=== PATIENT | female | born 1980 | race Caucasian/White ===

== ENCOUNTER 2020-06-07 14:31 | Outpatient (REF) | payer BC, SELFPAY ==
--- NOTE | 2020-06-07 14:41 | XR_ITS ---
EXAMINATION: XR CHEST CLINICAL INFORMATION: Chest pain COMPARISON: None TECHNIQUE: 2 views of the chest were obtained. FINDINGS: No significant abnormality is noted involving the heart, lungs, mediastinum, bony thorax or soft tissues. XR/XR chest 2V IMPRESSION: Unremarkable examination.
== END 2020-06-07 14:32 | disposition home or self-care (01) ==
LOC: HO.XRAY 14:31
PROVIDERS: PCP General Practice; Visit Provider Emergency Medicine
DX: R07.9 Chest pain, unspecified (principal)
CPT/HCPCS: 71046

== ENCOUNTER 2020-09-28 20:30 | Emergency (ER) | payer OTHER, BC, SELFPAY ==
[2020-09-28 20:44] VITALS: BP 116/83; PULSE 111; RESP 16; TEMP 36.6; O2SAT 97; BMI 37.3
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
[2020-09-28 22:00] VITALS: PULSE 92; RESP 16; O2SAT 97
== END 2020-09-28 22:11 | disposition home or self-care (01) ==
PROVIDERS: Emergency Provider Emergency Medicine; PCP General Practice
DX: S13.4XXA Sprain of ligaments of cervical spine, initial encounter (principal); V43.52XA Car driver injured in collision with other type car in traffic accident, initial encounter; M54.6 Pain in thoracic spine; Y93.89 Activity, other specified; Y92.89 Other specified places as the place of occurrence of the external cause; Y99.8 Other external cause status
CPT/HCPCS: 99283; 99284

== ENCOUNTER 2020-09-29 07:51 | Outpatient (REF) | payer OTHER, BC, SELFPAY ==
--- NOTE | ~2020-09-29 | US_ITS ---
EXAMINATION: US THYROID CLINICAL INFORMATION: Thyroid nodules. COMPARISON: None TECHNIQUE: Linear transducer garcia-scale and color Doppler examination with attention to the region of the thyroid. FINDINGS: SIZE: Measurements of the thyroid lobes and nodules are given in sagittal, anteroposterior and transverse dimensions respectively. Right Thyroid Lobe: 4.0 x 2.2 x 1.2 cm, volume 5.4 mL. Parenchyma: The gland echotexture is heterogeneous. Thyroid vascularity is normal. Left Thyroid Lobe: 2.6 x 1.5 x 1.6 cm, volume 3.3 mL. Parenchyma: The gland echotexture is heterogeneous. Thyroid vascularity is normal. Isthmus: 0.6 cm in maximum AP dimension. No focal thyroid nodule is seen. NODES: No lymphadenopathy is seen in the tissue surrounding the thyroid gland. US/US thyroid IMPRESSION: Normal thyroid ultrasound. ACR TI-RADS RECOMMENDATION REFERENCE: Ultrasound-guided fine-needle aspiration, followup ultrasound, no further follow up. * TR1 (0 point) and TR 2 (2 points): No FNA or follow up * TR3 (3 points): FNA if more than or equal to 2.5 cm in maximum dimension, followup ultrasound in 1, 3 and 5 years if 1.5 to 2.4 cm in maximum dimension. * TR4 (4-6 points): FNA if more than or equal to 1.5 cm in maximum dimension, followup ultrasound in 1, 2, 3 and 5 years if 1 to 1.4 cm in maximum dimension. * TR5 (more than or equal to 7 points): FNA if more than or equal to 1 cm in maximum dimension, followup ultrasound every year for 5 years if 0.5 to 0.9 cm in maximum dimension. * TR3, TR4 or TR5 nodules that are below the size threshold for follow up receive no follow up.
== END 2020-09-29 07:52 | disposition home or self-care (01) ==
LOC: HO.US 07:51
PROVIDERS: Visit Provider General Practice
DX: E06.3 Autoimmune thyroiditis (principal)
CPT/HCPCS: 76536

== ENCOUNTER → 2020-10-19 11:49 | Outpatient (BNVA) | payer BC, SELFPAY | PROVIDERS: PCP General Practice; Visit Provider Internal Medicine ==

== ENCOUNTER 2020-10-29 10:46 | Outpatient (REF) | payer BC, SELFPAY ==
[2020-10-29 12:01] LABS: Free T4 (Free Thyroxine) 0.99 ng/dL (0.71-1.85); Thyroid Stimulating Hormone 3.23 uIU/mL (0.32-4.0); Vitamin D 25-OH Total 16.1 ng/mL (>30)
== END 2020-10-29 10:47 | disposition home or self-care (01) ==
LOC: HO.LAB 10:46
PROVIDERS: PCP General Practice; Visit Provider Internal Medicine
DX: E55.9 Vitamin D deficiency, unspecified (principal); E06.3 Autoimmune thyroiditis
CPT/HCPCS: 36415; 82306; 84439; 84443

== ENCOUNTER 2020-12-07 10:15 | Emergency (ER) | payer BC, SELFPAY ==
[2020-12-07 10:47] VITALS: BP 133/76; PULSE 96; RESP 18; TEMP 36.8; O2SAT 98; BMI 40.4
--- NOTE | 2020-12-07 11:38 | ECG_ITS ---
Test Reason : CHEST TIGHTNESS Blood Pressure : / mmHG Vent. Rate : 084 BPM Atrial Rate : 084 BPM P-R Int : 158 ms QRS Dur : 080 ms QT Int : 368 ms P-R-T Axes : 041 026 023 degrees QTc Int : 434 ms Normal sinus rhythm Normal ECG No previous ECGs available Referred By: Sirena Souza Electronically Signed By:TERE BORDEN MD
--- NOTE | 2020-12-07 11:43 | ED.ANXIETY ---
HPI - Anxiety General Chief Complaint: Anxiety Stated Complaint: SOB Time Seen by Provider: 12/07/20 11:38 Related Data Home Medications Medication Instructions Recorded Confirmed cyanocobalamin (vitamin B-12) 1,000 mcg IM Q4W ml 10/19/20 10/19/20 1,000 mcg/mL injection solution ergocalciferol (vitamin D2) 1,250 1,250 mcg PO QWEEK 10/19/20 10/19/20 mcg (50,000 unit) capsule levothyroxine 100 mcg capsule 100 mcg PO DAILY 10/19/20 10/19/20 Previous Rx's Medication Instructions Recorded cyclobenzaprine 10 mg PO TID PRN #10 tab 09/28/20 ibuprofen 800 mg PO Q8H PRN #15 tab 09/28/20 lorazepam [Ativan] 0.5 mg PO DAILY PRN #5 tab 12/07/20 Allergies Allergy/AdvReac Type Severity Reaction Status Date / Time cinnamon Allergy Angioedema Verified 12/07/20 10:54 seafood Allergy Abdominal Verified 12/07/20 10:54 Pain Review of Systems Review of Systems: Constitutional : No Weight loss, No Fever, No Chills, No Night Sweats, No Fatigue, No Malaise ENT/Mouth : No Hearing loss, No Ear Pain, No Nasal Congestion, No Sinus Pain, No Hoarseness, No sore throat, No Rhinorrhea, No Swallowing Difficulty Eyes: No Eye Pain, No Swelling, No Redness, No Foreign Body, No Discharge, No Vision Changes Cardiovascular : Chest tightness at time of the episode No SOB, No Dyspnea on Exertion, No Orthopnea, No Edema, No Palpitations Respiratory : No Cough, No Sputum, No Wheezing, No Smoke Exposure, No Dyspnea Gastrointestinal : No Nausea, No Vomiting, No Diarrhea, No Constipation, No abdominal Pain, No Hematochezia, No Melena Genitourinary : no irregular bleeding, No Dysuria, No Urinary Frequency, No Hematuria, No Urinary Incontinence, No Urgency, No Flank Pain, No Urinary Flow Changes, No Hesitancy Musculoskeletal : No joint pain, No Myalgias, No Joint Swelling Skin : No Skin Lesions, No rash Neuro : No Weakness, No Numbness, No Paresthesias, No Loss of Consciousness, No Dizziness, No Headache Psych : Anxiety/Panic 2 hours before arrival, No Depression, No SI/HI/AH/VH, No Social Issues, Heme/Lymph: No Bruising, No Bleeding,No Lymphadenopathy Endocrine : No Polyuria, No Polydipsia, No Temperature Intolerance Yes all other systems are reviewed and are negative [facility] Past Medical History Medical History (Updated 12/07/20 @ 12:40 by Sirena Souza [facility]) Yasmeen's disease Hypothyroid Vitamin D deficiency Surgical History Hx of section Family History Family History (Updated 10/19/20 @ 12:00 by ANGELIC Armendariz) Mother Rheumatoid arthritis Sleep apnea Thyroid disease Father Thyroid disease Diabetes Heart disease Social History Social History (Updated 10/19/20 @ 11:51 by ANGELIC Armendariz) Patient Tobacco Use Status: Never used Tobacco Advance Directives: No Advance Directives Information Provided: No Patient : No Physical Exam Vital Signs: Vital Signs: Last Vital Signs Temp 98.3 F 12/07/20 10:47 Pulse 96 12/07/20 10:47 Resp 18 12/07/20 10:47 BP 133/76 12/07/20 10:47 Pulse Ox 98 12/07/20 10:47 Body Mass Index 40.4 Const: General: healthy appearing, no acute distress and well developed Nutritional Appearance: well nourished Orientation/consciousness: patient oriented x3 Neck: Neck: Yes normal visual inspection, Yes full ROM and Yes trachea midline Thyroid: Thyroid normal Resp: Auscultation: clear to auscultation bilaterally Cardio: Rate: regular rate Rhythm: regular rhythm GI: Inspection: Yes normal to inspection and No distended Palpation (GI): No hepatosplenomegaly present Auscultation: normal bowel sounds Skin: General skin exam: elasticity normal, turgor normal and dry skin Neuro: General: patient oriented x3 Course Course Course Narrative: 41-year-old female with a 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 Last TSH 3.23, free T4 0.99 on October 29. patient reports that she was getting ready for work this morning and started feeling anxious with heart palpitations choking like feeling, SOB, chest tightness. By the time patient came to emergency department her symptoms went away. Right now patient is feeling fine. Denies any CP, SOB with or without exertion, presyncope, syncope. Patient reports that she does have history of anxiety and has been waiting to see a therapist. Patient denies any factors that could contribute to it at this time. Denies any SI or HI. No stress. Patient reports that she works from home. First COVID vaccine last Saturday. Denies fevers or chills Reevaluation(s) Reevaluation #1: patient denies any and anxiety at this moment. She has calm, family member at the bedside. EKG done and normal sinus with heart rate 84. I will send her home with script for Ativan, however she will call her PCP and set up an appointment with her therapist sooner. Patient is agreeable to plan of care verbalizes understanding of instructions. She was given the opportunity to questions MDM - Anxiety ECG Data ECG interpretation date: 12/07/20 Interpretation: normal EKG. Sinus rhythm, heart rate 84 and regular, P are 0.1 6, QRS 0.8, QTC 434 ms with normal R-wave progression Discharge Plan Discharge Clinical Impression: Acute anxiety Patient Disposition: Home, Self-Care Instructions: Anxiety (ED) Additional Instructions: you were seen here today after an anxiety attack at home. Your EKG was normal. Please follow-up with your primary care provider. You are given a script for anti anxiety medication please. Please do not drive any vehicle when taking this medication. You may return to emergency department if you will experience any additional symptoms. Prescriptions: New lorazepam [Ativan] 0.5 mg tablet 0.5 mg PO DAILY PRN (Reason: anxiety) Qty: 5 RF: 0 No Action cyclobenzaprine 10 mg tablet 10 mg PO TID PRN (Reason: muscle spasm) Qty: 10 RF: 0 ibuprofen 800 mg tablet 800 mg PO Q8H PRN (Reason: pain) Qty: 15 RF: 0 levothyroxine 100 mcg capsule 100 mcg PO DAILY RF: 0 cyanocobalamin (vitamin B-12) 1,000 mcg/mL solution 1,000 mcg IM Q4W RF: 0 ergocalciferol (vitamin D2) 1,250 mcg (50,000 unit) capsule 1,250 mcg PO QWEEK RF: 0 Stand Alone Forms: Work/School Release Interventions: ED Discharge Assessment Last Done: 12/07/20 12:50 Discharge Date/Time: 12/07/20 12:51
== END 2020-12-07 12:51 | disposition home or self-care (01) ==
PROVIDERS: Emergency Provider Emergency Medicine; PCP General Practice
DX: F41.9 Anxiety disorder, unspecified (principal); E06.3 Autoimmune thyroiditis; Z79.899 Other long term (current) drug therapy
CPT/HCPCS: 93005; 99283

== ENCOUNTER 2020-12-11 23:30 | Emergency (ER) | payer BC, SELFPAY ==
--- NOTE | ~2020-12-11 | CT_ITS ---
EXAMINATION: CT ABDOMEN AND PELVIS WITHOUT CONTRAST CLINICAL INFORMATION: Right flank pain and blood in urine COMPARISON: None TECHNIQUE: Multidetector volumetric imaging was performed from the superior aspect of the liver through the pubic symphysis. Sagittal and coronal reformatted images were obtained on the technologist's workstation. This CT examination was performed using dose optimization techniques as appropriate, variously including the following: *Automated exposure control *Adjustment of mA and/or kV according to patient size (this includes techniques or standardized protocols for targeted exams where dose is matched to indication/reason for exam; i.e. extremities or head) *Use of iterative reconstruction technique DLP: 798 mGy-cm FINDINGS: LUNG BASES: The visualized lung bases are unremarkable. LIVER, GALLBLADDER, AND BILIARY TREE: The liver is enlarged, measuring approximately 23.5 cm in length. No focal hepatic lesion or biliary ductal dilatation is identified. The gallbladder is unremarkable with no evidence of radiopaque gallstones, gallbladder wall thickening, or obvious pericholecystic inflammatory changes. PANCREAS: Unremarkable. SPLEEN: Unremarkable. ADRENAL GLANDS: Unremarkable. KIDNEYS AND URETERS: There is a right ureterovesicular junction calculus measuring 8 mm with moderate hydroureteronephrosis. No left-sided hydronephrosis. Punctate left upper pole renal calculus noted. BLADDER: Mildly distended. GASTROINTESTINAL TRACT: There is suggestion of a small hiatal hernia. The small and large bowel are unremarkable. The appendix is unremarkable. No free fluid or free air is seen. ABDOMINAL WALL: No significant hernia is appreciated. LYMPH NODES: Normal. VASCULAR: Unremarkable. PELVIC VISCERA: Unremarkable. OSSEOUS STRUCTURES: Unremarkable. CT/CT abdomen pelvis wo con IMPRESSION: 1. Right ureterovesicular junction calculus measuring 8 mm with moderate hydroureteronephrosis. 2. Punctate left renal calculus without hydronephrosis. 3. Hepatomegaly.
[2020-12-11 23:54] VITALS: BP 138/81; PULSE 95; RESP 18; TEMP 36.4; O2SAT 99; BMI 40.4
[2020-12-12 00:25] LABS: Appearance Urine HAZY; Color Urine YELLOW; Glucose Urine UA NEG (NEG); Leukocyte Esterase Urine NEG (NEG); Nitrite Urine NEG (NEG); Specific Gravity - Urine >= 1.030 (1.005-1.025); Urine Blood 2+ (NEG); Urine Ketones NEG (NEG); Urine Protein TRACE MG/DL (NEG-TRACE)
[2020-12-12 00:27] LABS: UPreg QC Valid YES; Urine Pregnancy NEGATIVE (NEGATIVE)
[2020-12-12 00:32] LABS: Bacteria Urine 1+ /LPF; Mucus Urine 1+ /LPF; RBC Urine 30-49 /HPF (0); Squamous Epithelial Cell Urine 1+ /LPF
--- NOTE | 2020-12-12 00:36 | PC.NURSE ---
at bedside for primary eval.
--- NOTE | 2020-12-12 00:42 | ED.GENADULT ---
HPI - General Adult General Chief complaint: Back Pain/Injury Stated complaint: flank pain/right leg pain Time Seen by Provider: 12/12/20 00:40 Source: patient and family (Mother) Mode of arrival: ambulatory Limitations: no limitations History of Present Illness HPI narrative: 40-year-old female came in for evaluation of right flank pain. Pain started 4 hours ago, patient was sitting on the toilet seat for bowel movement when the pain started suddenly,, pain is localized to the right flank area, pain was associated with nausea no vomiting, no fever, no chills, no history of similar pain, no history of kidney stone, no relieving factor, no aggravating factors. No back injury. Related Data Home Medications Medication Instructions Recorded Confirmed cyanocobalamin (vitamin B-12) 1,000 mcg IM Q4W ml 10/19/20 10/19/20 1,000 mcg/mL injection solution ergocalciferol (vitamin D2) 1,250 1,250 mcg PO QWEEK 10/19/20 10/19/20 mcg (50,000 unit) capsule levothyroxine 100 mcg capsule 100 mcg PO DAILY 10/19/20 10/19/20 Previous Rx's Medication Instructions Recorded cyclobenzaprine 10 mg PO TID PRN #10 tab 09/28/20 ibuprofen 800 mg PO Q8H PRN #15 tab 09/28/20 lorazepam [Ativan] 0.5 mg PO DAILY PRN #5 tab 12/07/20 ondansetron HCl [Zofran] 4 mg PO Q8H PRN #10 tab 12/12/20 oxycodone 5 mg PO Q8H PRN #14 tab 12/12/20 Allergies Allergy/AdvReac Type Severity Reaction Status Date / Time cinnamon Allergy Angioedema Verified 12/07/20 10:54 seafood Allergy Abdominal Verified 12/07/20 10:54 Pain Review of Systems Review of Systems: All other systems are reviewed and are negative Constitutional: Reports as per HPI and Reports no additional constitutional complaints Eyes: Reports as per HPI and Reports no additional eye complaints Reports system reviewed and no additional complaints, except as documented Cardiovascular: Reports as per HPI and Reports no additional cardiovascular complaints Respiratory: Reports as per HPI and Reports no additional respiratory complaints Gastrointestinal: Reports as per HPI and Reports no additional gastrointestinal complaints Genitourinary: Reports no additional female genitourinary complaints Musculoskeletal: Reports no additional musculoskeletal complaints Skin/Breast: Reports system reviewed and no additional complaints, except as docu Psychiatric: Reports no additional psychiatric complaints Endocrine: Reports no additional endocrine complaints Hematologic/Lymphatic: Reports no additional hematologic/lymphatic complaints Allergic/Immunologic: Reports no additional allergic/immunologic complaints Reports system reviewed and no additional complaints, except as documented and Reports Abnormal speech present [facility] Past Medical History Medical History Yasmeen's disease Hypothyroid No known health problems Vitamin D deficiency Surgical History Hx of section Family History Family History Mother Rheumatoid arthritis Sleep apnea Thyroid disease Father Thyroid disease Diabetes Heart disease Social History Social History Patient Tobacco Use Status: Never used Tobacco Advance Directives: No Patient : No Physical Exam Vital Signs: Vital Signs: Last Vital Signs Temp 97.6 F 12/11/20 23:54 Pulse 95 12/11/20 23:54 Resp 18 12/11/20 23:54 BP 138/81 12/11/20 23:54 Pulse Ox 99 12/11/20 23:54 Body Mass Index 40.4 Vital signs have been reviewed as appeared to be correct. Blood pressure normal. Heart rate normal. Respiration rate normal. Temperature normal. Oxygen saturation normal. Appearance: Alert. Oriented X3. No acute distress. Head: Normal external exam. Normocephalic. Atraumatic. No Nieto signs noted. No raccoon eyes noted Eyes: PERRLA. EOMI. Conjunctiva and sclera normal. Eyelids normal. ENT: TM's Normal. Pharynx normal. Uvula midline. Moist mucous membranes. No trismus noted. No drooling noted. No muffled voice noted. Neck: Normal inspection. Neck supple. FROM. No adenopathy. Thyroid Normal. No meningeal signs. No neck mass noted. CVS: Normal heart rate and rhythm. Heart sound normal. No murmurs noted. Pulses normal throughout. Respiratory: No respiratory distress. Painless inspiration. Breath sounds normal. No wheezes/rales/rhonchi noted. Chest nontender. No accessory muscle usage noted or decreased air movement noted. Abdomen: Soft and nontender. Bowel sounds normal in all 4 quadrants. No distention noted. No organomegaly noted. No visible injury noted. Back: Right CVA tenderness. Full range of motion noted. Skin: Skin warm and dry. Normal skin color. Normal skin turgor. No rashes/lesions/lacerations noted. Extremities: No lower extremity edema. Extremities exhibit normal range of motion. Extremities nontender. Neuro: Oriented X 3. No motor deficit. No sensory deficit. Reflexes normal. Course Course Course Narrative: Assessment and plan. 40-year-old female came in with right flank pain secondary to 8 mm stone that is now at right UVJ, patient received 2 doses of morphine and Zofran in the emergency department explained to the patient that the size of the stone may be too big for spontaneous passing, but patient would like to take prescription for pain medication and go home tonight and will return if needed. Flank pain now is better is 3/10. Medical Decision Making Lab Data Lab results reviewed: Yes I reviewed the patient's lab results. Result diagrams: 12/12/20 00:50 12/12/20 00:50 Labs: Lab Results 12/12/20 12/12/20 12/12/20 Range/Units 00:17 00:17 00:50 WBC 10.3 (4.8-10.8) X10*3/uL RBC 4.15 L (4.20-5.50) X10*6/uL Hgb 10.7 L (12.0-16.0) g/dl Hct 33.6 L (37-47) % MCV 81.0 (80-98) fL MCH 25.8 L (27.0-33.0) pg MCHC 31.8 (31.0-35.0) g/dl RDW 15.3 (11.0-16.0) % Plt Count 401 H (160-400) X10*3/uL MPV 9.2 L (9.4-12.3) fL Immature Gran % (Auto) 0.4 (0.0-0.4) % Neut % (Auto) 75.6 H (45-73) % Lymph % (Auto) 14.7 L (20-40) % [place] % (Auto) 6.5 (2-11) % Eos % (Auto) 2.6 (0-4) % Baso % (Auto) 0.2 (0-2) % Lymph # (Auto) 1.5 (1.2-4.9) X10*3/uL [place] # (Auto) 0.7 (0.1-1.2) X10*3/uL Eos # (Auto) 0.3 (0.0-0.4) X10*3/uL Baso # (Auto) 0.0 (0.0-0.2) X10*3/uL Abs Immat Gran (auto) 0.04 H (0.00-0.03) X10*3/uL Absolute Neuts (auto) 7.8 (2.0-8.3) X10*3/uL Absolute Nucleated RBC 0.000 (0.0-0.012) X10*3/uL Nucleated RBC % (auto) 0.0 (0.0-0.2) /100WBC Sodium (135-145) mmol/L Potassium (3.3-5.1) mmol/L Chloride (96-108) mmol/L Carbon Dioxide (22-29) mmol/L Anion Gap (12-20) BUN (9-16) mg/dL Creatinine (0.5-1.4) mg/dL Estim Creat Clear Calc Estimated GFR Random Glucose (60-115) mg/dL Calcium (8.4-10.2) mg/dL Total Bilirubin (0.0-1.0) mg/dL Direct Bilirubin (0.0-0.5) mg/dL AST (5-31) U/L ALT (0-31) U/L Alkaline Phosphatase (39-117) U/L Total Protein (6.5-8.0) g/dL Albumin (3.5-5.0) g/dL Lipase (8-78) U/L Urine Color YELLOW Urine Appearance HAZY Urine pH 6.0 (5.0-8.0) Ur Specific Woody >= 1.030 H (1.005-1.025) Urine Protein TRACE (NEG-TRACE) MG/DL Urine Glucose (UA) NEG (NEG) MG/DL Urine Ketones NEG (NEG) MG/DL Urine Blood 2+ H (NEG) Urine Nitrite NEG (NEG) Ur Leukocyte Esterase NEG (NEG) Urine RBC 30-49 H (0) /HPF Urine WBC 1-4 (0-4) /HPF Ur Squamous Epith Cells 1+ /LPF Urine Bacteria 1+ /LPF Urine Mucus 1+ /LPF Urine Test NEGATIVE (NEGATIVE) 12/12/20 Range/Units 00:50 WBC (4.8-10.8) X10*3/uL RBC (4.20-5.50) X10*6/uL Hgb (12.0-16.0) g/dl Hct (37-47) % MCV (80-98) fL MCH (27.0-33.0) pg MCHC (31.0-35.0) g/dl RDW (11.0-16.0) % Plt Count (160-400) X10*3/uL MPV (9.4-12.3) fL Immature Gran % (Auto) (0.0-0.4) % Neut % (Auto) (45-73) % Lymph % (Auto) (20-40) % [place] % (Auto) (2-11) % Eos % (Auto) (0-4) % Baso % (Auto) (0-2) % Lymph # (Auto) (1.2-4.9) X10*3/uL [place] # (Auto) (0.1-1.2) X10*3/uL Eos # (Auto) (0.0-0.4) X10*3/uL Baso # (Auto) (0.0-0.2) X10*3/uL Abs Immat Gran (auto) (0.00-0.03) X10*3/uL Absolute Neuts (auto) (2.0-8.3) X10*3/uL Absolute Nucleated RBC (0.0-0.012) X10*3/uL Nucleated RBC % (auto) (0.0-0.2) /100WBC Sodium 137 (135-145) mmol/L Potassium 3.9 (3.3-5.1) mmol/L Chloride 109 H (96-108) mmol/L Carbon Dioxide 18 L (22-29) mmol/L Anion Gap 14 (12-20) BUN 14 (9-16) mg/dL Creatinine 0.80 (0.5-1.4) mg/dL Estim Creat Clear Calc 89.9 Estimated GFR > 60 Random Glucose 120 H (60-115) mg/dL Calcium 8.4 (8.4-10.2) mg/dL Total Bilirubin 0.2 (0.0-1.0) mg/dL Direct Bilirubin < 0.2 (0.0-0.5) mg/dL AST 18 (5-31) U/L ALT 12 (0-31) U/L Alkaline Phosphatase 88 (39-117) U/L Total Protein 6.8 (6.5-8.0) g/dL Albumin 3.6 (3.5-5.0) g/dL Lipase 24 (8-78) U/L Urine Color Urine Appearance Urine pH (5.0-8.0) Ur Specific Woody (1.005-1.025) Urine Protein (NEG-TRACE) MG/DL Urine Glucose (UA) (NEG) MG/DL Urine Ketones (NEG) MG/DL Urine Blood (NEG) Urine Nitrite (NEG) Ur Leukocyte Esterase (NEG) Urine RBC (0) /HPF Urine WBC (0-4) /HPF Ur Squamous Epith Cells /LPF Urine Bacteria /LPF Urine Mucus /LPF Urine Test (NEGATIVE) Imaging Data CT scan - abdomen: Radiologist's impression: . Right ureterovesicular junction calculus measuring 8 mm with moderate hydroureteronephrosis. 2. Punctate left renal calculus without hydronephrosis. 3. Hepatomegaly. Discharge Plan Discharge Clinical Impression: Renal colic, Ureterolithiasis Patient Disposition: Home, Self-Care Instructions: Kidney Stones (ED) Prescriptions: New ondansetron HCl [Zofran] 4 mg tablet 4 mg PO Q8H PRN (Reason: nausea and vomiting) Qty: 10 RF: 0 oxycodone 5 mg tablet 5 mg PO Q8H PRN (Reason: pain) Qty: 14 RF: 0 No Action cyclobenzaprine 10 mg tablet 10 mg PO TID PRN (Reason: muscle spasm) Qty: 10 RF: 0 ibuprofen 800 mg tablet 800 mg PO Q8H PRN (Reason: pain) Qty: 15 RF: 0 lorazepam [Ativan] 0.5 mg tablet 0.5 mg PO DAILY PRN (Reason: anxiety) Qty: 5 RF: 0 levothyroxine 100 mcg capsule 100 mcg PO DAILY RF: 0 cyanocobalamin (vitamin B-12) 1,000 mcg/mL solution 1,000 mcg IM Q4W RF: 0 ergocalciferol (vitamin D2) 1,250 mcg (50,000 unit) capsule 1,250 mcg PO QWEEK RF: 0 Referrals: Bal Ventura MD [Physician] - 2 days Stand Alone Forms: Work/School Release
[2020-12-12] MEDS: 0.9 % Sodium Chloride 1,000 ML 999 ML IVCONT ×2 (00:49→02:10)
[2020-12-12 00:55] LABS: Basophils Percent Auto 0.2 % (0-2); Eosinophils Absolute Auto 0.3 X10*3/uL (0.0-0.4); Eosinophils Percent Auto 2.6 % (0-4); Hematocrit 33.6 % (37-47); Hemoglobin 10.7 g/dl (12.0-16.0); Imm Gran Abs Auto 0.04 X10*3/uL (0.00-0.03); Imm Gran Pct Auto 0.4 % (0.0-0.4); Lymphocytes Absolute Auto 1.5 X10*3/uL (1.2-4.9); Lymphocytes Percent Auto 14.7 % (20-40); MANUAL DIFF FLAG NO; Mean Corpuscular HGB Conc 31.8 g/dl (31.0-35.0); Mean Corpuscular Hemoglobin 25.8 pg (27.0-33.0); Mean Platelet Volume 9.2 fL (9.4-12.3); Monocytes Absolute Auto 0.7 X10*3/uL (0.1-1.2); Monocytes Percent Auto 6.5 % (2-11); Neutrophils Absolute Auto 7.8 X10*3/uL (2.0-8.3); Neutrophils Percent Auto 75.6 % (45-73); Platelet Count 401 X10*3/uL (160-400); Red Blood Count 4.15 X10*6/uL (4.20-5.50); Red Cell Distribution Width 15.3 % (11.0-16.0); White Blood Count 10.3 X10*3/uL (4.8-10.8)
[2020-12-12] MEDS: Morphine Sulfate 2 MG/ML CARTRIDGE 1 MG IVPUSH ×2 (00:55→01:49)
[2020-12-12 01:17] LABS: Alanine Aminotransferase 12 U/L (0-31); Albumin Level 3.6 g/dL (3.5-5.0); Alkaline Phosphatase 88 U/L (39-117); Anion Gap 14 (12-20); Aspartate Amino Transferase 18 U/L (5-31); Bilirubin Direct < 0.2 mg/dL (0.0-0.5); Bilirubin Total 0.2 mg/dL (0.0-1.0); Blood Urea Nitrogen 14 mg/dL (9-16); Calcium 8.4 mg/dL (8.4-10.2); Carbon Dioxide 18 mmol/L (22-29); Chloride 109 mmol/L (96-108); Creatinine Clr Calc Pharmacy 89.9; Estimated Glomerular Filt Rate > 60; Glucose Random 120 mg/dL (60-115); Lipase 24 U/L (8-78); Potassium 3.9 mmol/L (3.3-5.1); Sodium 137 mmol/L (135-145); Total Protein 6.8 g/dL (6.5-8.0)
--- NOTE | 2020-12-12 01:48 | PC.NURSE ---
at bedside. Pt medicated per JUL.
[2020-12-12 01:52] VITALS: BP 117/71; PULSE 93; RESP 16
[2020-12-12] MEDS: Ketorolac Tromethamine 15 MG/ML VIAL 30 MG IVPUSH (02:09)
--- NOTE | 2020-12-12 02:51 | PC.NURSE ---
Pt vomiting multiple times in bed. Pt reports relief of nausea after vomiting. Pt reports some relief of pain after Toradol.
[2020-12-12] MEDS: Prochlorperazine Edisylate 10 MG/2 ML VIAL IVPUSH (03:26)
[2020-12-12] MEDS: HYDROmorphone HCl 1 MG/ML SYRINGE IVPUSH (03:26)
[2020-12-12 03:32] VITALS: BP 112/57; PULSE 82; RESP 20; O2SAT 99
[2020-12-12 06:10] VITALS: BP 109/63; PULSE 89; RESP 16; O2SAT 100
== END 2020-12-12 06:22 | disposition home or self-care (01) ==
PROVIDERS: Emergency Provider Emergency Medicine; PCP General Practice
DX: N13.2 Hydronephrosis with renal and ureteral calculous obstruction (principal); N20.0 Calculus of kidney
CPT/HCPCS: 36415; 74176; 80048; 80076; 81001; 81025; 83690; 85025; 96361; 96374; 96375; 96376; 99284; J1170; J1885; J2270; J2405

== ENCOUNTER → 2020-12-14 12:35 | Outpatient (BNVA) | payer BC, SELFPAY | PROVIDERS: PCP General Practice; Visit Provider Urology ==

== ENCOUNTER → 2020-12-15 14:26 | Outpatient (BNVA) | payer BC, SELFPAY | PROVIDERS: PCP General Practice; Visit Provider Surgery Vascular Surgery ==

== ENCOUNTER 2020-12-21 15:07 | Outpatient (REF) | payer BC, SELFPAY ==
--- NOTE | ~2020-12-21 | US_ITS ---
EXAMINATION: US RETROPERITONEAL LIMITED (RENAL ONLY) CLINICAL INFORMATION: Calculus of kidney. COMPARISON: CT abdomen pelvis 12/12/2020. TECHNIQUE: Real-time imaging of the kidneys. FINDINGS: RIGHT KIDNEY: 11.6 x 4.4 x 5.8 cm (SAG x AP x TRV). The kidney is normal in size, contour, and echogenicity. Renal cortical thickness is normal. No calculi or focal parenchymal lesions. No hydronephrosis. The previously identified right hydronephrosis on 12/12/2020 CT scan is no longer seen. LEFT KIDNEY: 12.0 x 4.4 x 6.3 cm (SAG x AP x TRV). The kidney is normal in size, contour, and echogenicity. Renal cortical thickness is normal. No calculi or focal parenchymal lesions. No hydronephrosis. There is a 0.6 x 0.4 x 1 cm echogenic density suggestive of a stone in the right UVJ region. This is similar to CT scan 12/12/2020 exam. US/US renal BI IMPRESSION: No renal stone or hydronephrosis. Stone in the bladder in the right UVJ region similar to 12/12/2020 CT scan.
== END 2020-12-21 15:08 | disposition home or self-care (01) ==
LOC: HO.HMGCX 15:07
PROVIDERS: Visit Provider Urology
DX: N20.0 Calculus of kidney (principal)
CPT/HCPCS: 76775

== ENCOUNTER → 2020-12-28 11:58 | Outpatient (BNVA) | payer BC, SELFPAY | PROVIDERS: PCP General Practice; Visit Provider Urology ==

== ENCOUNTER → 2021-01-04 11:29 | Outpatient (BNVA) | payer BC, SELFPAY | PROVIDERS: PCP General Practice; Visit Provider Internal Medicine ==

== ENCOUNTER 2021-01-06 07:41 | Outpatient (REF) | payer BC, SELFPAY ==
[2021-01-06 09:06] LABS: Free T4 (Free Thyroxine) 1.06 ng/dL (0.71-1.85); Thyroid Stimulating Hormone 8.82 uIU/mL (0.32-4.0); Vitamin D 25-OH Total 18.3 ng/mL (>30)
== END 2021-01-06 07:42 | disposition home or self-care (01) ==
LOC: HO.LAB 07:41
PROVIDERS: PCP General Practice; Visit Provider Internal Medicine
DX: E06.3 Autoimmune thyroiditis (principal); E55.9 Vitamin D deficiency, unspecified
CPT/HCPCS: 36415; 82306; 84439; 84443

== ENCOUNTER 2021-01-09 10:47 | Day surgery (SDC) | payer BC, SELFPAY ==
--- NOTE | 2021-01-06 11:50 | HO.ANESPROP2 ---
Documented by User: Ai Forbes NP 01/06/21 11:51 HPI - Anesthesia Eval Consult details Narrative: 40yo F for Right Cystoscopy, Ureteroroscopy, Retro, Laser, Poss Stent Placement PMFSH Active Problems Active Problems: All Active Problems (Updated 12/15/20 @ 14:54 by Truman Herring MD) Varicose veins of right lower extremity with inflammation (Acute) Nephrolithiasis (Acute) Vitamin D deficiency (Acute) Yasmeen's disease (Acute) Past Medical History Medical History Yasmeen's disease Hypothyroid No known health problems Vitamin D deficiency Family History Family History Mother Rheumatoid arthritis Sleep apnea Thyroid disease Father Thyroid disease Diabetes Heart disease Surgical History Surgical History (Updated 01/09/21 @ 11:49 by Michaela Schultz RN) Hx of section Tubal ligation status Social History Social History Patient Tobacco Use Status: Never used Tobacco Use of substances other than those prescribed or required for medical reasons: No Are you DNR?: No Advance Directives: No Advance Directives Information Provided: Yes Recently lost weight without trying: No Nutrition Risks: No Nutritional Risk Patient : No Poor oral hygiene: Yes Meds Allergies Allergy/AdvReac Type Severity Reaction Status Date / Time cinnamon Allergy Angioedema Verified 01/04/21 11:36 seafood Allergy Abdominal Verified 01/04/21 11:36 Pain Home Medications Medication Instructions Recorded Confirmed Last Taken Type cyanocobalamin (vitamin B-12) 1,000 mcg IM Q4W ml 10/19/20 10/19/20 Unknown History 1,000 mcg/mL injection solution ergocalciferol (vitamin D2) 1,250 1,250 mcg PO QWEEK 10/19/20 10/19/20 Unknown History mcg (50,000 unit) capsule Exam Exam Date and Time: January 06, 2021 1150 Pertinent Lab Results Pertinent Lab Results: Laboratory Tests 12/12/20 12/12/20 00:50 00:50 WBC 10.3 Hgb 10.7 L Hct 33.6 L Plt Count 401 H Sodium 137 Potassium 3.9 Chloride 109 H Carbon Dioxide 18 L BUN 14 Creatinine 0.80 Narrative Narrative: EKG 11/2020 Vent. Rate : 084 BPM ? ? Atrial Rate : 084 BPM ?? P-R Int : 158 ms? QRS Dur : 080 ms ? ? QT Int : 368 ms ? ? ? P-R-T Axes : 041 026 023 degrees ?? QTc Int : 434 ms ? Normal sinus rhythm Normal ECG No previous ECGs available Assessment and Plan Assessment Anesthesia Assessment: Chart Reviewed Documented by User: Kelly Jacobson MD 01/09/21 15:31 PMFSH Active Problems Active Problems: All Active Problems (Updated 12/15/20 @ 14:54 by Truman Herring MD) Varicose veins of right lower extremity with inflammation (Acute) Nephrolithiasis (Acute) Vitamin D deficiency (Acute) Yasmeen's disease (Acute) Bilateral LE edema. Being w/u by cardiac and vascular. Appointments pending. No pain. No redness. No SOB. No swelling anywhere else Past Medical History Medical History Yasmeen's disease Hypothyroid No known health problems Vitamin D deficiency Family History Family History Mother Rheumatoid arthritis Sleep apnea Thyroid disease Father Thyroid disease Diabetes Heart disease Family history of problems with anesthesia: No Surgical History Surgical History (Updated 01/09/21 @ 11:49 by Michaela Schultz RN) Hx of section Tubal ligation status History of Problems with Anesthesia: No Social History Social History Patient Tobacco Use Status: Never used Tobacco Use of substances other than those prescribed or required for medical reasons: No Are you DNR?: No Advance Directives: No Advance Directives Information Provided: Yes Recently lost weight without trying: No Nutrition Risks: No Nutritional Risk Patient : No Poor oral hygiene: Yes Meds Allergies Allergy/AdvReac Type Severity Reaction Status Date / Time cinnamon Allergy Angioedema Verified 01/04/21 11:36 seafood Allergy Abdominal Verified 01/04/21 11:36 Pain Home Medications Medication Instructions Recorded Confirmed Last Taken Type cyanocobalamin (vitamin B-12) 1,000 mcg IM Q4W ml 10/19/20 10/19/20 Unknown History 1,000 mcg/mL injection solution ergocalciferol (vitamin D2) 1,250 1,250 mcg PO QWEEK 10/19/20 10/19/20 Unknown History mcg (50,000 unit) capsule Exam Height,Weight and Vital Signs: Height 4 ft 11 in Weight 90.718 kg Vital Signs Temp Pulse Resp BP Pulse Ox 98.7 F 93 16 110/81 96 01/09/21 12:10 01/09/21 12:10 01/09/21 12:10 01/09/21 12:10 01/09/21 12:10 Airway Mallampati Class: II TM Dist: >3cm Neck ROM: Full Loose/Missing/Broken Teeth: Yes (2 very loose teeth bottom front. Aware that may fall out with placement of LMA. Does not mind if they do) Heart: RRR Lungs: CTAB Assessment and Plan Assessment Anesthesia Assessment: Anesthesia Plan Discussed Final Anesthetic Review Family History of Problems with Anesthesia: No History of Problems with Anesthesia: No NPO: Yes ASA Class: III Final Preanesthetic Review: No Changes in Pt Med Stat, Meds/Allgs Chart Reviewed, Consent Obtained/Reviewed and Anes Risks/Benef Reviewed Patient Risk: Intermediate Procedure Risk: Low Assessment/Block/Sedation in SS: Assess/Block/Sedation-SS Anesthetic Plan Anesthetic Plan: GA and MAC: Disposition: Standard PACU
[2021-01-09] VITALS (7 sets, daily range): BP systolic 102–115; BP diastolic 66–81; PULSE 92–115; RESP 14–16; TEMP 36.4–37.1; O2SAT 93–96; BMI 40.4
--- NOTE | ~2021-01-09 | FL_ITS ---
EXAMINATION: XR FLUOROSCOPY WITH IMAGES CLINICAL INFORMATION: Cystoscopy ureteroscopy, retrograde exam and laser treatment. COMPARISON: Previous renal ultrasound December [address] of the abdomen and pelvis November 2020 TECHNIQUE: Fluoroscopy performed by Dr. Bal Ventura. Fluoroscopy time: 0.3 minutes DAP: 8.4 mGycm2 Images: 1 FINDINGS: Single image demonstrates the distal end of a right internal ureteral stent. FL/FL guidance in OR IMPRESSION: Fluoroscopy guidance for retrograde exam.
[2021-01-09] MEDS: Lactated Ringers 1,000 ML 100 ML IVCONT (12:25)
[2021-01-09] MEDS: levoFLOXacin 500 MG TABLET PO (12:30)
--- NOTE | 2021-01-09 14:21 | MHC.SHP ---
Pre-Procedural Eval Section A Date of Service: 01/09/21 Section B Chief Complaint: Calculus of Kidney Details of Present Illness: Distal right ureteric stone has not passed with medical expulsion therapy Relevant Social History: None Present Medications: see Short Stay Collaborative assessment Medical History: No relevant PMH History of Previous Operations: No relevant previous surgery Allergies: Allergies Allergy/AdvReac Type Severity Reaction Status Date / Time cinnamon Allergy Angioedema Verified 01/04/21 11:36 seafood Allergy Abdominal Verified 01/04/21 11:36 Pain Review of Systems Sugical H&P ROS: Negative: Constitution, Cardiovascular, Respiratory, Neurological, Psychiatric, Hem-Onc, Allergic/Immunologic, Gastrointestinal, Genitourinary, Musculoskeletal, Integumentary, Endocrine and Eyes/Ears/Nose/Throat Exam Surgical H&P Exam: Normal: HEENT, Normal: Heart, Normal: Lungs, Normal: Extremities, Normal: Abdomen, Normal: Skin and Normal: Neurological Plan Diagnosis/Plan: Unchanged (Distal right ureteric stone extraction with ureteroscopy laser lithotripsy and stent placement) I have reviewed the history and physical and performed a pertinent physical examination on my patient. No changes have occurred unless specified.
--- NOTE | 2021-01-09 15:13 | W.PM.OPN ---
Operative Note Operative Note Date of Service: 01/09/21 Narrative: PreOperative Diagnosis: Distal right ureteric stone Post Operative Diagnosis: Distal right ureteric stone Procedure: - right cystoscopy, retrograde - right ureteroscopy, laser lithotripsy, stone basketing - right stent placement Surgeon: Dr Bal Ventura Anesthesia: General Indications for procedure: Distal right ureteric stone. 8 mm. Failed to pass with medical expulsion therapy. Here for intervention. Procedure: After informed consent was verified patient was brought to the operating placed in supine position. Anesthesia was administered per protocol. Patient was placed in modified dorsal lithotomy position and prepped and draped in a sterile fashion. Safety pause time-out and side of surgery confirmed. Antibiotics confirmed. Twenty-two [place] cystoscope inserted per urethra. As soon as we entered the bladder was noted that the right ureteric orifice appeared to be inflamed and mounded with stone that was visible within the ureteric orifice. Retrograde examination performed. Filling defects seen in distal portion of the ureter. Sensor guidewire placed. Rigid ureteroscopy performed. Stone encountered. Using a 360 micron laser fiber the holmium laser was used to break the stone into small pieces. Using a short catch basket the stone fragments were removed from ureteric orifice into the bladder. Once the distal ureteric orifice was ensured to be free from stone the rigid ureteral scope was removed. A 6 [place] by 22 cm double-J stent was placed under fluoroscopy with good coil in renal pelvis in the bladder. Bladder was emptied and stone pieces were sent for pathology. She tolerated procedure well was extubated in operating room transferred in stable condition to the operating recovery area. Pathology: Stones Drains: 6 [place] by 22 cm double-J right ureteric catheter
[2021-01-09] MEDS: Phenazopyridine HCL 100 MG TABLET PO (15:37)
[2021-01-14 21:36] LABS: Stone Source KIDNEY
== END 2021-01-09 16:23 | disposition home or self-care (01) ==
PROVIDERS: PCP General Practice; Visit Provider Urology
PROC: (CPT 52356; principal; 2021-01-09 13:00)
DX: N20.1 Calculus of ureter (principal); E06.3 Autoimmune thyroiditis; E03.9 Hypothyroidism, unspecified; E55.9 Vitamin D deficiency, unspecified; Z79.899 Other long term (current) drug therapy
CPT/HCPCS: 52356; 82365; 88300; C1758; C1769; C2617; J1100; J1885; J2250; J2405; J3010; Q9967

== ENCOUNTER 2021-01-16 10:26 | Outpatient (REF) | payer BC, SELFPAY ==
--- NOTE | ~2021-01-16 | US_ITS ---
EXAMINATION: BILATERAL LOWER EXTREMITY VENOUS ULTRASOUND (Reflux Exam) CLINICAL INDICATION: Varicose veins right lower extremity. COMPARISON: None. TECHNIQUE: Color flow triplex imaging and compression Doppler was performed to evaluate both the deep and the superficial systems bilaterally. To evaluate the superficial system, the examination was performed in the upright position. Color-flow Doppler ultrasound and compression ultrasound were utilized. In addition, maneuvers were utilized to demonstrate reflux. FINDINGS: 1. DEEP VENOUS ULTRASOUND OF THE RIGHT LOWER EXTREMITY: Common Femoral Vein: Compressible, normal respiratory variation and augmented flow. Femoral vein: Compressible, normal color flow and augmentation. Popliteal Vein: Compressible, normal augmentation. Deep Reflux: There is no evidence of reflux in the deep system in either the common femoral vein or the popliteal vein. There is no evidence of a Chopra's cyst. 2. SUPERFICIAL ULTRASOUND WITH DOPPLER OF RIGHT LOWER EXTREMITY GREAT SAPHENOUS VEIN: Saphenofemoral junction: 0.75 cm; Reflux: No evidence of reflux. Proximal thigh: 0.65 cm; Reflux: No evidence of reflux. Mid thigh: 0.44 cm; Reflux: No evidence of reflux. Above knee: 0.41 cm; Reflux: No evidence of reflux. At knee: 0.38 cm; Reflux: No evidence of reflux. Below knee: 0.33 cm; Reflux: No evidence of reflux. Mid calf: 0.41 cm; Reflux: No evidence of reflux. Ankle: 0.28 cm; Reflux: No evidence of reflux. DUPLICATED GREAT SAPHENOUS VEIN: There is a lateral accessory great saphenous vein at the saphenofemoral junction which measures 0.32 cm and demonstrates no significant reflux. SMALL SAPHENOUS VEIN: Saphenopopliteal junction: 0.23 cm; reflux time 1716 ms. Mid calf: 0.26 cm; No evidence of reflux. Distal calf: 0.3 cm; No evidence of reflux. VEIN OF GIACOMINI: None Imaged. PERFORATORS: There is a dialysis technician at the right mid calf measures 0.15 cm and demonstrates no significant reflux. Another dialysis technician at the distal calf measures 0.11 cm and has no significant reflux. VARICOSITIES: Several varicosities are identified in these include: Right proximal thigh 0.39 cm, no significant reflux, Right proximal thigh 0.32 cm, no significant reflux, Right mid thigh 0.4 cm, no significant reflux, Right proximal calf 0.3 cm, no significant reflux. 3. DEEP VENOUS ULTRASOUND OF THE LEFT LOWER EXTREMITY: Common Femoral Vein: Compressible, normal respiratory variation and augmented flow. Femoral vein: Compressible, normal color flow and augmentation. Popliteal Vein: Compressible, normal augmentation. Deep Reflux: There is no evidence of reflux in the deep system in either the common femoral vein or the popliteal vein. There is no evidence of a Chopra's cyst. 4. SUPERFICIAL ULTRASOUND WITH DOPPLER OF LEFT LOWER EXTREMITY GREAT SAPHENOUS VEIN: Saphenofemoral junction: 0.48 cm; Reflux: No evidence of reflux. Proximal thigh: 0.37 cm; Reflux: No evidence of reflux. Mid thigh: 0.47 cm; Reflux: No evidence of reflux. Above knee: 0.45 cm; Reflux: No evidence of reflux. At knee: 0.45 cm; Reflux: No evidence of reflux. Below knee: 0.39 cm; Reflux: No evidence of reflux. Mid calf: 0.25 cm; Reflux: 1788 ms. Ankle: 0.24 cm; Reflux: No evidence of reflux. DUPLICATED GREAT SAPHENOUS VEIN: There is a lateral duplicated accessory great saphenous vein which measures 0.42 cm and demonstrates no significant reflux. SMALL SAPHENOUS VEIN: Saphenopopliteal junction: 0.35 cm; No evidence of reflux. Mid calf: 0.24 cm; No evidence of reflux. Distal calf: 0.22 cm; No evidence of reflux. VEIN OF GIACOMINI: None Imaged. PERFORATORS: There is a dialysis technician at the left proximal thigh which measures 0.27 cm and demonstrates no significant reflux. VARICOSITIES: There is a varicosity at the left proximal thigh which measures 0.3 cm and demonstrates no significant reflux. US/US venous duplex LE BI IMPRESSION: Patent deep and superficial venous systems without evidence of thrombus. No evidence of deep venous reflux. On the right, while the great saphenous vein is mildly dilated proximally. There is no demonstrable reflux. There is demonstrable reflux within the right small saphenous vein with reflux time 1716 ms, though the vessel only measures 0.23 cm. There are several right lower extremity venous varicosities measuring greater than 3 mm in diameter. On the left there is demonstrable reflux within the midcalf segment of the great saphenous vein which is not dilated. The remainder of the great saphenous vein does not demonstrate significant reflux. There is a dialysis technician at the left proximal calf which measures 0.27 cm with reflux time 2240 ms. There is a 3 mm varicosity at the left proximal thigh.
== END 2021-01-16 10:27 | disposition home or self-care (01) ==
LOC: HO.US 10:26
PROVIDERS: Visit Provider Surgery Vascular Surgery
DX: I83.893 Varicose veins of bilateral lower extremities with other complications (principal); I83.11 Varicose veins of right lower extremity with inflammation
CPT/HCPCS: 93970

== ENCOUNTER → 2021-01-18 14:38 | Outpatient (BNVA) | payer BC, MEDICAID, SELFPAY | PROVIDERS: PCP General Practice; Visit Provider Urology | DX: N20.0 Calculus of kidney (principal); Z91.02 Food additives allergy status; Z91.013 Allergy to seafood; Z46.6 Encounter for fitting and adjustment of urinary device | CPT/HCPCS: 52310 ==

== ENCOUNTER → 2021-01-26 12:42 | Outpatient (BNVA) | payer BC, SELFPAY | PROVIDERS: PCP General Practice; Visit Provider Surgery Vascular Surgery ==

== ENCOUNTER 2021-06-27 15:24 | Outpatient (REF) | payer OTHER, SELFPAY ==
[2021-06-27 16:54] LABS: Free T4 (Free Thyroxine) 1.03 ng/dL (0.71-1.85); Thyroid Stimulating Hormone 1.76 uIU/mL (0.32-4.0); Vitamin D 25-OH Total 14.1 ng/mL (>30)
== END 2021-06-27 15:25 | disposition home or self-care (01) ==
LOC: HO.LAB 15:24
PROVIDERS: PCP General Practice; Visit Provider Internal Medicine
DX: E06.3 Autoimmune thyroiditis (principal); E55.9 Vitamin D deficiency, unspecified
CPT/HCPCS: 36415; 82306; 84439; 84443

== ENCOUNTER → 2021-07-12 10:58 | Outpatient (BNVA) | payer OTHER, SELFPAY | PROVIDERS: PCP General Practice; Visit Provider Internal Medicine ==

== ENCOUNTER 2022-01-03 15:29 | Outpatient (REF) | payer OTHER, SELFPAY ==
[2022-01-03 17:48] LABS: Free T4 (Free Thyroxine) 1.08 ng/dL (0.71-1.85); Thyroid Stimulating Hormone 1.53 uIU/mL (0.32-4.0); Vitamin D 25-OH Total 18.7 ng/mL (>30)
== END 2022-01-03 15:30 | disposition home or self-care (01) ==
LOC: HO.LAB 15:29
PROVIDERS: Visit Provider Internal Medicine
DX: E06.3 Autoimmune thyroiditis (principal); E55.9 Vitamin D deficiency, unspecified
CPT/HCPCS: 36415; 82306; 84439; 84443

== ENCOUNTER 2022-02-01 20:24 | Emergency (ER) | payer OTHER, SELFPAY | END 2022-02-01 21:14 | disposition left against medical advice (07) | PROVIDERS: Emergency Provider Emergency Medicine | DX: R05.9 Cough, unspecified (principal) ==

== ENCOUNTER 2023-04-01 14:49 | Outpatient (REF) | payer OTHER, SELFPAY ==
[2023-04-01 16:05] LABS: MANUAL DIFF FLAG NO
[2023-04-01 16:17] LABS: Basophils Absolute Auto 0.1 X10*3/uL (0.0-0.2); Basophils Percent Auto 0.7 % (0-2); Eosinophils Absolute Auto 0.3 X10*3/uL (0.0-0.4); Eosinophils Percent Auto 2.6 % (0-4); Hematocrit 37.3 % (37.0-47.0); Hemoglobin 11.6 g/dl (12.0-16.0); Imm Gran Abs Auto 0.04 X10*3/uL (0.00-0.03); Imm Gran Pct Auto 0.4 % (0.0-0.4); Lymphocytes Absolute Auto 2.1 X10*3/uL (1.2-4.9); Lymphocytes Percent Auto 20.6 % (20-40); Mean Corpuscular HGB Conc 31.1 g/dl (31.0-35.0); Mean Corpuscular Hemoglobin 25.3 pg (27.0-33.0); Mean Corpuscular Volume 81.3 fL (80.0-98.0); Mean Platelet Volume 10.1 fL (9.4-12.3); Monocytes Absolute Auto 0.9 X10*3/uL (0.1-1.2); Monocytes Percent Auto 8.8 % (2-11); Neutrophils Absolute Auto 6.8 x10*3/uL (2.0-8.3); Neutrophils Percent Auto 66.9 % (45-73); Platelet Count 466 X10*3/uL (160-400); Red Blood Count 4.59 X10*6/uL (4.20-5.50); Red Cell Distribution Width 16.8 % (11.0-16.0); White Blood Count 10.1 X10*3/uL (4.8-10.8)
[2023-04-01 16:45] LABS: TSH reflex Free T4 0.84 uIU/mL (0.32-4.0)
[2023-04-01 17:08] LABS: Folate 5.4 ng/mL (> or = 4.0); Vitamin B12 < 148 pg/mL (200-900)
== END 2023-04-01 14:50 | disposition home or self-care (01) ==
LOC: HO.HHCL 14:49
PROVIDERS: Visit Provider General Practice
DX: E53.8 Deficiency of other specified B group vitamins (principal); E61.1 Iron deficiency; E03.9 Hypothyroidism, unspecified; E55.9 Vitamin D deficiency, unspecified; D64.9 Anemia, unspecified
CPT/HCPCS: 36415; 82607; 82746; 84443; 85025

== ENCOUNTER → 2023-05-28 12:30 | Outpatient (BNV) | payer OTHER, SELFPAY | PROVIDERS: PCP General Practice; Visit Provider Radiology Diagnostic Radiology | DX: Z12.31 Encounter for screening mammogram for malignant neoplasm of breast (principal) | CPT/HCPCS: 77063; 77067 ==

== ENCOUNTER 2023-05-28 12:41 | Outpatient (REF) | payer OTHER, SELFPAY ==
--- NOTE | ~2023-05-28 | MM_ITS ---
EXAMINATION: MM SCREENING DIGITAL BREAST TOMOSYNTHESIS, BILATERAL CLINICAL INFORMATION: Screening. Asymptomatic. COMPARISON: Mammography: There are no prior mammograms for comparison. TECHNIQUE: Digital breast tomosynthesis is performed in both the craniocaudal and mediolateral oblique views along with computer-aided detection (CAD). Synthesized 2D images are generated from the tomosynthesis. FINDINGS: There are scattered areas of fibroglandular density (ACR BI-RADS breast composition Category b). There are no significant masses, abnormal calcifications, or other abnormalities. MM/MM tomosynthesis screening BI IMPRESSION: No mammographic evidence of malignancy. ASSESSMENT: BI-RADS BI-RADS 1 - Negative RECOMMENDATION: Routine annual mammography screening. 1 year F/U This examination should not preclude the clinical evaluation of a suspicious palpable abnormality. This patient's information was entered into a reminder system with a target due date for their next mammogram.
== END 2023-05-28 12:42 | disposition home or self-care (01) ==
LOC: HO.MAMMO 12:41
PROVIDERS: PCP General Practice; Visit Provider General Practice
DX: Z12.31 Encounter for screening mammogram for malignant neoplasm of breast (principal)
CPT/HCPCS: 77063; 77067

== ENCOUNTER 2023-06-19 13:05 | Outpatient (AMB) | payer OTHER, SELFPAY ==
--- NOTE | 2023-06-19 13:17 | MHC.OFFVIS ---
Intake Vital Signs 06/19/23 13:19 Height 4 ft 11 in Weight 187 lb BMI 37.8 Intake Visit Reasons: RECONDITIONING ASSOCIATE Annual/PCP Ref Senior Business Intelligence Analyst Required: No Information Interpreted: non-clinical & clinical Business Records Manager: Business Records Manager Present (Aidyn) Allergies cinnamon Allergy (Verified 06/19/23 13:20) Angioedema seafood Allergy (Verified 06/19/23 13:20) Abdominal Pain Is last menstrual period known: Yes Last menstrual period: 05/28/23 Post menopausal: No HPI HPI Comments History of Present Illness Details Presenting for annual exam. Complaining of a right breast lump Last Pap/HPV was 17 years Last Mammogram was BI-RADS 1 in 06/12 [facility] Medical History H/O nephrolithotomy with removal of calculi No known health problems Vitamin D deficiency Yasmeen's disease Hypothyroid Surgical History Tubal ligation status Hx of section Family History Mother Rheumatoid arthritis Sleep apnea Thyroid disease Father Thyroid disease Diabetes Heart disease Social History Alcohol intake: never Patient Tobacco Use Status: Never used Tobacco Female Reproductive History Menstrual Age of Menarche: 7 Duration of menses: 8-10 days Date of last menstrual period: 05/28/23 control method: permanent sterilization Total pregnancies: 2 Full term: 2 Number of Living Children: 2 Date of Mammogram: 05/28/23 Review of Systems Const All systems reviewed & are unremarkable except as noted in HPI and below Card Reports as per HPI Resp Reports as per HPI GI Reports as per HPI and Reports no additional complaints Reports as per HPI Physical Exam Vital Signs: BMI result Body Mass Index 37.8 Const General: cooperative, healthy appearing and comfortable Chest Chest palpation & inspection: normal inspection of the chest and normal palpation of entire chest wall Breast/axilla inspection: normal inspection of the breasts (Left breast wnl, right breast lump0.5 cm, 5 cm from the nipple at 8 o'clock) and normal inspection of the axillae Breast/axilla palpation: normal palpation of the breasts, normal palpation of the axillae and no axillary lymphadenopathy Resp Effort & Inspection: normal respiratory effort Auscultation: clear to auscultation bilaterally Percussion: percussion normal Cardio Palpation: normal PMI Rate: regular rate Rhythm: regular rhythm Heart sounds: no murmurs and no rubs Peripheral pulses: Peripheral pulses 2+ throughout GI Inspection: Yes normal to inspection Palpation (GI): Soft to palpation, nontender, no guarding, not rigid and No hepatosplenomegaly present Percussion: Yes normal to percussion Auscultation: normal bowel sounds Rectal Exam - Female: deferred General: Yes bladder normal to palpation External Female Exam: No lesion Speculum Exam - Vagina: normal appearance of the vagina, normal palpation, normal vaginal discharge and not erythematous Speculum Exam - Cervix: normal appearance of the cervix and normal palpation Bimanual exam- vagina & uterus: normal bimanual exam, normal palpation, bladder normal to palpation, consistency normal, normal palpation and enlarged Bimanual Exam- Adnexa, other: normal adnexae, no masses and no tenderness Assessment & Plan Assessment & Plan (1) Well woman exam: Code(s): Z01.419 - Encounter for gynecological examination (general) (routine) without abnormal findings Plan: Cotesting done. Instructions given the patient to schedule her next screening Mammogram in 06/08. Counseled the patient about the recommended dietary allowance of 1000 mg of Calcium & 600 IU of vitamin D. The patient was instructed to perform monthly self-breast exams and to schedule an annual exam in a year; All questions answered and the patient verbalized understanding. Instructed the patient to schedule annual exam in a year (2) Breast lump in female: Comment: 0.5 cm, 5 cm from the nipple at 8 o'clock Code(s): N63.0 - Unspecified lump in unspecified breast Plan: Discussed with the patient the finding on Breast exam (breast lump) .The differential diagnosis includes but not limited to lump/cyst/pre cancer/cancer or dense breast tissue. The work up includes breast US and diagnostic mammogram and referred the patient for surgical breast consult. (3) Enlarged uterus: Code(s): N85.2 - Hypertrophy of uterus Plan: Discussed with the patient the finding on pelvic exam, enlarged uterus, will order pelvic ultrasound. Instructions given to patient to schedule an ultrasound follow-up appointment. Orders: Orders Pap Smear Today Z12.4 - Encounter for screening for malignant neoplasm of cervix MM tomosynthesis diagnostic RT Today N63.0 - Unspecified lump in unspecified breast US breast RT complete Today N63.0 - Unspecified lump in unspecified breast US pelvic and transvaginal Today N85.2 - Hypertrophy of uterus Referrals General Surgery Referral N63.0 - Unspecified lump in unspecified breast Coding Level of Care Code Est Pt Prev Care 40-64y(21249) Diagnoses Well woman exam Z01.419 Breast lump in female N63.0 Enlarged uterus N85.2
[2023-06-19 13:19] VITALS: BMI 37.8
== END 2023-06-19 14:09 | disposition home or self-care (01) ==
LOC: HO.HWS 13:05
PROVIDERS: PCP General Practice; Visit Provider Obstetrics & Gynecology
DX: Z01.419 Encounter for gynecological examination (general) (routine) without abnormal findings (principal); N63.0 Unspecified lump in unspecified breast; N85.2 Hypertrophy of uterus
CPT/HCPCS: 99396

== ENCOUNTER 2023-06-19 13:05 | Outpatient (REF) | payer OTHER, SELFPAY ==
[2023-06-25 04:38] LABS: HPV mRNA E6/E7 rflx Not Detected (Not Detected)
== END 2023-06-19 13:06 | disposition home or self-care (01) ==
LOC: HO.LNP 13:05
PROVIDERS: PCP General Practice; Visit Provider Obstetrics & Gynecology
DX: Z12.4 Encounter for screening for malignant neoplasm of cervix (principal); Z11.51 Encounter for screening for human papillomavirus (HPV)
CPT/HCPCS: 87624; 88142

== ENCOUNTER 2024-10-06 11:52 | Outpatient (REF) | payer OTHER, SELFPAY ==
--- OUTSIDE RECORDS SUMMARY | 2024-10-06 13:05 | XMS_ITS | Encounter Summary ---
Author Organization [employer] Address [address] [place] [address] 7 [place] [address] Care Team Providers Care Wanigan Clerk Name Role Phone Chika Scott MD Primary Care Provider [phone] Reason for Visit * Reason Comments sick visit Encounter Details Date Type Department Care Team (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 I have aimee holcomb 10/06/[address] you li ve. Do you have problems with any of the following? None of the above 10/06/2024 Food Insecurity Answer Date Recorded Within the past 12 months, y ou worried that your food would run out before you got money to buy more: Never True 10/06/2024 Within the past 12 months,th e food you bought just didn't last and you didn't have enough money to get more: Never True Transportation Answer Date Recorded In the past 12 months, has l ack of transportation kept you from medical appts, meetings, work or from getting things needed for daily living? No 10/06/2024 Utilities Answer Date Recorded In the past 12 months, has t he wooju, gas, oil or water company threatened to shut off services in your home? No 10/06/2024 Depression Answer Date Recorded Patient Health Questionnaire-2 Score 0 10/06/2024 Internet Access Answer Date Recorded Internet Access Q1 Yes 10/06/2024 Internet Access Q2 Not on file 10/06/2024 Comments Unknown Sex and Gender Information Value Date Recorded Sex Assigned at Female 03/19/2022 10:36 AM EDT Legal Sex Female 10:36 AM EDT Gender Identity Female 03/19/2022 10:36 AM EDT Sexual Orientation Straight 03/19/2022 10 :36 AM EDT documented as of this encounter Last Filed Vital Signs Vital Sign Reading Time Taken Comments Blood Pressure 114/72 10/06/2024 11:11 AM EDT Pulse 78 10/06/2024 11:11 AM EDT Temperature 37 ??C (98.6 ??F) 10/06/2024 11:11 AM EDT Respiratory Rate 20 10/06/2024 11:11 AM EDT Oxygen Saturation - - Inhaled Oxygen Concentration - - Weight 79.5 kg (175 lb 3.2 oz) 10/06/2024 11:11 AM EDT Height 149.9 cm (4' 11 ) 10/06/2024 11:11 AM EDT Body Mass Index 35.39 10/06/2024 11:11 AM EDT documented in this encounter Functional Status * Over the past 2 weeks, how often have you been bothered by any of the following problems? Question Answer Date of Assessment Author Patient Health Questionnaire-2 Score 0 10/06/2024 11:17 AM EDT Pam Pierson MA * Little interest or pleasure in doing things Answer Date of Assessment Author Not at all 10/06/2024 11:17 AM EDT Pam Browning MA * Feeling down, depressed, or hopeless Answer Date of Assessment Author Not at all 10/06/2024 11:17 AM EDT Pam Browning MA * Trouble falling or staying asleep, or sleeping too much Answer Date of Assessment Author Not at all 10/06/2024 11:17 AM EDT Pam Browning MA * Feeling tired or having little energy Answer Date of Assessment Author Not at all 10/06/2024 11:17 AM EDT Pam Browning MA * Poor appetite or overeating Answer Date of Assessment Author Not at all 10/06/2024 11:17 AM EDT Pam Browning MA * Feeling bad about yourself - or that you are a failure or have let yourself or your family down Answer Date of Assessment Author Not at all 10/06/2024 11:17 AM EDT Pam Browning MA * Trouble concentrating on things, such as reading the newspaper or watching television Answer Date of Assessment Author Not at all 10/06/2024 11:17 AM EDT Pam Browning MA * Moving or speaking so slowly that other people could have noticed? Or the opposite - being so fidgety or restless that you have been moving around a lot more than usual. 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
--- OUTSIDE RECORDS SUMMARY | 2024-10-06 13:05 | XMS_ITS | Encounter Summary ---
Author Organization [employer] Address [address] [facility] [address] [place] [address] Care Team Providers Care Lead Massage Therapist Name Role Phone Chika Scott MD Primary Care Provider [phone] Encounter Details Date Type Department Care Team ([facility] st Contact Info) Description 10/24/2022 Orders Only [facility] [address] [place] [address] Chika Scott MD [address] [place] [address] Cobalamin deficiency (Primary Dx); Iron deficiency Social History Tobacco Use Types Packs/Day Years Used Date Smoking Tobacco: Never Smokeless Tobacco: Never Alcohol Use Standard Drinks/Week Comments Yes 0 (1 standard drink = 0.6 oz pur e alcohol) ocasionally Comments Unknown Sex and Gender Information Value Date Recorded Sex Assigned at Female 03/19/2022 10:36 AM EDT Legal Sex Female 10:36 AM EDT Gender Identity Female 03/19/2022 10:36 AM EDT Sexual Orientation Straight 03/19/2022 10 :36 AM EDT COVID-19 Exposure Response Date Recorded In the last 10 days, have yo u been in contact with someone who was confirmed or suspected to have Coronavirus/COVID-19? No / Unsure 10/22/2022 3:15 PM EDT documented as of this encounter Miscellaneous Notes * Result Encounter Note - Chika Scott MD - 10/24/2022 1:28 PM EDT Please call patient and let her know that her vitamin B12 is low. Where should I send the replacement pills? documented in this encounter Plan of Treatment Not on file documented as of this encounter Procedures Procedure Name Priority Date/Time Associated Diagnosis Comments VITAMIN B12/FOLATE, SERUM PANEL Routine 04/01/2023 2:50 PM EST Cobalamin deficiency TSH W/REFLEX TO FT4 Routine 04/01/2023 2 :50 PM EST Iron deficiency CBC WITH AUTO DIFFERENTIAL Routine 04/01/2023 2:50 PM EST Iron deficiency documented in this encounter Results * (ABNORMAL) Vitamin B12/Folate, Serum Panel (04/01/2023 2:50 PM EST) Vitamin B12 <148(L) 200 - 900 pg/mL [facility] Comment:NORMAL 200-900 PG/ML INDETERMINATE 160-199 PG/ML DEFICIENT < 160 PG/ML Folate 5.4 > or = 4.0 ng/mL [facility] Comment:Reference Values:> o r = 4.0 ng/mL< 4.0 ng/mL suggests folate deficiency Methotrexate, aminopterin and folinic acid(leucovorin) are chemotherapeutic agents whose molecularstructures are similar to folate; therefore, the Architectfolate assay cannot be used for patients using these drugs. 04/01/2023 2:50 PM EST 04/01/2023 4:02 PM EST us Chika Scott MD LAB BLOOD ORDERABLES Final Res ult [facility] [address] [place] [phone] * TSH W/Reflex to FT4 (04/01/2023 2:50 PM EST) TSH reflex Free T4 0.84 0.32 - 4.0 uIU/mL [facility] Blood 04/01/2023 2:50 PM EST 04/01/2023 4:02 PM EST us Chika Scott MD LAB BLOOD ORDERABLES Final Res ult [facility] [address] [place] [address] [phone] * (ABNORMAL) CBC auto differential (04/01/2023 2:50 PM EST) White Blood Count 10.1 4.8 - 10.8 X10*3/uL [facility] Red Blood Count 4.59 4.20 - 5.50 X10*6/uL [facility] Hemoglobin 11.6(L) 12.0 - 16.0 g/dl [facility] Hematocrit 37.3 37.0 - 47.0 % [facility] Mean Corpuscular Volume 81.3 80.0 - 98.0 fL [facility] Mean Corpuscular Hemoglobin 25.3(L) 27.0 - 33.0 pg [facility] Mean Corpuscular HGB Conc 31.1 31.0 - 35.0 g/dl [facility] Red Cell Distribution Width 16.8(H) 11.0 - 16.0 % [facility] Platelet Count 466(H) 160 - 400 X10*3/uL [facility] Mean Platelet Volume 10.1 9.4 - 12.3 fL [facility] Neutrophils Percent Auto 66.9 45 - 73 % [facility] Imm Gran Pct Auto 0.4 0.0 - 0.4 % [facility] Lymphocytes Percent Auto 20.6 20 - 40 % [facility] Monocytes Percent Auto 8.8 2 - 11 % [facility] Eosinophils Percent Auto 2.6 0 - 4 % [facility] Basophils Percent Auto 0.7 0 - 2 % [facility] NRBC Pct Auto 0.0 0.0 - 0.2 /100WBC [facility] Neutrophils Absolute Auto 6.8 2.0 - 8.3 x10*3/uL [facility] Imm Gran Abs Auto 0.04(H) 0.00 - 0.03 X10*3/uL [facility] Lymphocytes Absolute Auto 2.1 1.2 - 4.9 X10*3/uL [facility] Monocytes Absolute Auto 0.9 0.1 - 1.2 X10*3/uL [facility] Eosinophils Absolute Auto 0.3 0.0 - 0.4 X10*3/uL [facility] Basophils Absolute Auto 0.1 0.0 - 0.2 X10*3/uL [facility] NRBC Abs Auto 0.000 0.0 - 0.012 X10*3/uL [facility] Blood Venous blood specimen / Unknown 04/01/2023 2:50 PM EST 04/01/2023 4:02 PM EST us Chika Scott MD LAB BLOOD ORDERABLES Final Res ult [facility] [address] [place] [phone] [phone] documented in this encounter Visit Diagnoses Diagnosis Cobalamin deficiency- Primary Other B-complex deficiencies Iron deficiency Disorders of iron metabolism documented in this encounter Care Teams Lead Massage Therapist Relationship Specialty Start Date End Date Chika Scott MD [address] [place] [address] PCP - General Family Medicine 04/21/20 documented as of this encounter
--- OUTSIDE RECORDS SUMMARY | 2024-10-06 13:05 | XMS_ITS | Clinical Summary ---
Author Organization [employer] Address [address] [place] [address] 7[address] [place] [address] Care Team Providers Care Formal Service Waiter Name Role Phone Chika Scott MD Primary Care Provider [phone] Allergies Active Allergy Reactions Criticality Noted Date Comments Cinnamon 08/25/2019 Janie 08/25/2019 Medications cholecalciferol (Vitamin D-3) 50 MCG (1999 UT) capsule Take 1 capsule by mouth at bed time. 07/17/19 22 Active B Complex Vitamins (vitamin B complex) tablet Take 1 tablet by mouth in the morning. 01/18/20 22 Active Diclofenac Sodium 1 % gel Apply 1 application topically if needed in the morning, at noon, in the evening, and at bedtime (pain in left heel). 100 g 3 10/23/19 23 Active cyanocobalamin (Vitamin B-12) 100 MCG tabletIndicatio ns:Cobalamin deficiency take one tablet daily for supplementation 90 tablet 3 04/08/20 23 Active meclizine (Antivert) 25 MG tablet 1 tab po BID 60 tablet 3 08/26/19 24 Active levothyroxine (Synthroid, Levoxyl) 112 MCG tabletIndicatio ns:Hypothyroidi sm, unspecified type TAKE 1 TABLET (112 MCG) BY MOUTH BEFORE BREAKFAST 90 tablet 3 11/11/19 24 025 Active docusate sodium (Colace) 100 MG capsule Take 1 capsule (100 mg) by mouth 2 times daily. 180 capsule 3 03/23/20 24 Active ferrous gluconate (Fergon) 324 (38 Fe) MG tablet Take 1 tablet (324 mg) by mouth with breakfast. 90 tablet 1 03/23/20 24 Active Active Problems Problem Noted Date Diagnosed Date Encounter for screening mamm ogram for malignant neoplasm of breast 04/13/2023 Assessment & Plan (04/13/2023 8:20 AM EST): Order mammo Pap smear for cervical cancer screening 04/13/20 Assessment & Plan (04/13/2023 8:21 AM EST): Would like to establish care with intensive care nurse for pap and concerns about dyspanerunia Hypothyroidism 10/23/2022 Plantar fasciitis of left foot 10/23/2022 Assessment & Plan (10/23/2022 3:34 PM EDT): Will ice massage, use tennis ball strech 2-3 times daily Heel cups for shoe Diclofenac gel to painful area Urea cream for dry skin Attempt toenail pedicure, if not improving come back for fungal culture prn Anemia 10/22/2022 Cobalamin deficiency 10/22/2022 Gluten intolerance 10/22/2022 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 Iron deficiency 10/22/2022 Steatosis of liver 10/22/2022 Vitamin D deficiency 10/22/2022 Localized swelling of both lower legs 12/25/2020 Kidney stone 12/21/2020 Encounters Date Type Department Care Team Description 10/06/2024 11:15 AM EDT Office Visit [facility] [address] [place] [id number] Chika Scott MD Screening for colon cancer (Primary Dx); Dietary counseling; Exercise counseling; Class 1 obesity without serious comorbidity with body mass index (BMI) of 34.0 to 34.9 in adult, unspecified obesity type; 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; Anemia, unspecified type; Shortness of breath 10/06/2024 Travel 10/05/2024 Telephone [facility] [address] [place] [id number] Chika Scott MD Chart Prep 10/01/[address] [address] Chika Scott MD Nurse Triage from Last 3 Months Social History Tobacco Use Types Packs/Day Years [...] the past 12 months, has t he electric, gas, oil or water company threatened to [...] Orientation Straight 03/19/2022 10 :36 AM EDT Last Filed Vital Signs Vital Sign Reading Time Taken Comments Blood Pressure 114/72 10/06/2024 11:11 AM EDT Pulse 78 10/06/2024 11:11 AM EDT Temperature 37 ??C (98.6 ??F) 10/06/2024 11:11 AM EDT Respiratory Rate 20 10/06/2024 11:11 AM EDT Oxygen Saturation 98% 08/26/2023 8:48 AM EDT Inhaled Oxygen Concentration - - Weight 79.5 kg (175 lb 3.2 oz) 10/06/2024 11:11 AM EDT Height 149.9 cm (4' 11 ) 10/06/2024 11:11 AM EDT Body Mass Index 35.39 10/06/2024 11:11 AM EDT Plan of Treatment Health Maintenance Due Date Last Done Comments CT Colonography 1978 Colonoscopy 1978 Colorectal Cancer Screening 1978 FIT DNA/Cologuard 1978 FIT 1978 FOBT 1978 Lipid Panel 1978 Sigmoidoscopy 1978 Disability Screening 1978 Alcohol/Substance Use Screening 1990 Family Planning (PISQ) 1993 DTaP/Tdap/Td Vaccines (1 - Tdap) 1997 Hepatitis A Vaccines (1 of 2 - Risk 2-dose series) 1997 Hepatitis B Vaccines (1 of 3 - 19+ 3-dose series) 1997 HPV/Cotest 2008 COVID-19 Vaccine ( - 2023-2 5 season) 2024 12/31/2020, 12/01/2020 Influenza Vaccine (#1) 2024 Mammogram 05/28/2025 05/28/2023 Depression Screening 10/06/2025 10/06/2024, 10/06/2024 SDOH Screening 10/06/2025 10/06/2024 Tobacco Screening 10/06/2025 10/06/2024 Cervical Cancer Screening 06/19/2026 Pap Smear 06/19/2026 06/19/2023 Zoster Vaccines (1 of 2) 2028 RSV Patients and Patients Aged 60 years or older (1 - 1-dose 75+ series) 2053 HIV Screening Completed 06/27/2019 Hepatitis C Screening Completed 06/27/2019 HIB Vaccines Aged Out No longer eligi ble based on patient's age to complete this topic HPV Vaccines Aged Out No longer eligi ble based on patient's age to complete this topic IPV Vaccines Aged Out No longer eligi ble based on patient's age to complete this topic Meningococcal B Vaccine Aged Out No l onger eligible based on patient's age to complete this topic Meningococcal Vaccine Aged Out No edilia devante eligible based on patient's age to complete this topic Pneumococcal Vaccine: Pediatrics (0 to 5 Years) and At-Risk Patients (6 to 49) Years) Aged Out No longer eligible b ased on patient's age to complete this topic RSV under 20 months Aged Out No longe r eligible based on patient's age to complete this topic Rotavirus Vaccines Aged Out No longer eligible based on patient's age to complete this topic Procedures Procedure Name Priority Date/Time Associated Diagnosis Comments PAP SMEAR Routine 06/19/2023 1:41 PM EST BI MAMMOGRAM SCREENING TOMOSYNTHESIS BILATERAL Routine 05/28/2023 1:07 PM EST STU HISTORICAL HEPATITIS C ANTIBODY RFLX Routine 06/27/2019 8:55 AM EST STU HISTORICAL HIV AB/AG Routine 06/27/2019 8:55 AM EST from Last 3 Months or Most Recently Relevant to Health Maintenance Results * Pap Smear (06/19/2023 1:41 PM EST) 06/19/2023 1:41 PM EST 06/20/2023 9:50 AM EST [facility] - 07/03/2023 11:44 AM EST ----- ------- Name: Charmaine Melendez ?Age/Sex: 42/F ? : 1980 Unit#: [id number] ?? Attend Dr: Maged Gutierrez MD ?Re06/19/23 ?Status: DEP REF ? Location: HO.LNP ?Disch: ? ----- ------- SPEC : [id number] ? RECD: 06/20/23 ? STATUS: ??SOUT ? REQ NUM: [id number] ? CATHERINE: 06/19/23-1 ? SUBM DR: Maged Gutierrez MD ? ENTERED: ??06/20/23 ?SP TYPE: Pap Smr ?OTHR DR: Chika Scott ? ORDERED: ??Pap Smear, PAP path review ? Interpretation ?? General Category: ? Epithelial cell abnormality. ?? Adequacy: ? Endocervical component present. ?? Interpretation: ? Low grade squamous intraepithelial lesion (ANURADHA I). ?Clue cells present. ? HPV mRNA E6/E7: ?Not Detected ? This assay detects E6/E7 viral messenger RNA (mRNA) from 14 high-risk HPV types (16, 18, ?? 31, 33, 35, 39, 45, 51, 52, 56, 58, 59, 66, 68) ? HPV testing performed by Guomai, Straughn, MD. ??See reference laboratory ?? portion of the EMR for entire report. ?Clinical Information LMP: 05/28/2023 Previous PAP test: Unknown date/findings Other history: Encounter for malignant neoplasm of cervix ? Material Received ?? ThinPrep-Cervical Copies To: ?? Chika Scott ?? [address] ?? [place] [address] ?? [phone] ?? Maged Gutierrez MD ?? [address] [place] [facility] ?? [place] [address] ?? [phone] ----- ------- Signed (signature on file) Ana Shell 07/03/23 1144 ? ----- ------- ? END OF REPORT ? us Generic External Data Provider LAB CYTOLOGY BETTY BARKER Final Result [facility] [address] [place] [phone] [phone] * BI Mammogram Screening Tomosynthesis Bilateral (05/28/2023 1:07 PM EST) Anatomical Region Laterality Modality Breast Bilateral Mammography 05/28/2023 1:07 PM EST Narrative 06/13/2023 3:12 AM EST ? [facility] ? [address] ?[place] [address] ? Mammography Report ? Signed ? Patient: Charmaine Melendez ? MR#: [id number] ? : 1980 ?Acct:[id number] ? Age/Sex: 42 / F ?ADM Date: 05/28/23 ? Loc: HO.MAMMO ? Attending Dr: Chika Scott MD ? Ordering Physician: Chika Scott ?Results: 1Negative ? Date of Service: 05/28/23 ?Follow Up: 1 Year From Orig ?? inal Mammogram ? Procedure(s): MM tomosynthesis screening BI ?? Accession Number(s): [id number] ? cc: Chika Scott ? EXAMINATION: ?? MM SCREENING DIGITAL BREAST TOMOSYNTHESIS, BILATERAL ? CLINICAL INFORMATION: ? Screening. Asymptomatic. ? COMPARISON: ?? Mammography: There are no prior mammograms for comparison. ? TECHNIQUE: ?? Digital breast tomosynthesis is performed in both the craniocaudal and ?? mediolateral oblique views along with computer-aided detection (CAD). ?? Synthesized 2D images are generated from the tomosynthesis. ? FINDINGS: ?? There are scattered areas of fibroglandular density (ACR BI-RADS breast ?? composition Category b). ? There are no significant masses, abnormal calcifications, or other ?? abnormalities. ? MM/MM tomosynthesis screening BI ?? IMPRESSION: ?? No mammographic evidence of malignancy. ? ASSESSMENT: ? BI-RADS BI-RADS 1 - Negative ? RECOMMENDATION: ?? Routine annual mammography screening. ? 1 year F/U ? This examination should not preclude the clinical evaluation of a ?? suspicious palpable abnormality. ? This patient's information was entered into a reminder system with a ?? target due date for their next mammogram. ? Dictated By: ?Rosa Jeffery MD ? Signed By: ?<Electronically signed by Rosa Jeffery MD in OV> ? 06/13/23 0308 ? DD/ 1307 ? TD/TT: ? Senior Asic Engineer: ? Procedure Note Amada Fontana - 06/13/2023 [facility] [address] [place] [address] Mammography Report Signed Patient: Charmaine Melendez MR#: [id number] : 1980Acct:[id number] Age/Sex: 42 / FADM Date: 05/28/23 Loc: HO.MAMMO Attending Dr: Chika Scott MD Ordering Physician: Regina Scottults: 1Negative Date of Service: 05/28/23Follow Up: 1 Year From Orig inal Mammogram Procedure(s): MM tomosynthesis screening BI Accession Number(s): [id number] cc: Chika Scott EXAMINATION: MM SCREENING DIGITAL BREAST TOMOSYNTHESIS, BILATERAL CLINICAL INFORMATION: Screening. Asymptomatic. COMPARISON: Mammography: There are no prior mammograms for comparison. TECHNIQUE: Digital breast tomosynthesis is performed in both the craniocaudal and mediolateral oblique views along with computer-aided detection (CAD). Synthesized 2D images are generated from the tomosynthesis. FINDINGS: There are scattered areas of fibroglandular density (ACR BI-RADS breast composition Category b). There are no significant masses, abnormal calcifications, or other abnormalities. MM/MM tomosynthesis screening BI IMPRESSION: No mammographic evidence of malignancy. ASSESSMENT: BI-RADS BI-RADS 1 - Negative RECOMMENDATION: Routine annual mammography screening. 1 year F/U This examination should not preclude the clinical evaluation of a suspicious palpable abnormality. This patient's information was entered into a reminder system with a target due date for their next mammogram. Dictated By: Rosa Jeffery MD Signed By: <Electronically signed by Rosa Jeffery MD in OV> 06/13/23 0308 DD/ 1307 TD/TT: Senior Asic Engineer: Chika Scott MD IMG BI PROCEDURES Final Result * HEPATITIS C ANTIBODY RFLX (06/27/2019 8:55 AM EST) HEPATITIS C ANTIBODY NONREACTIVE NONREACTIVE [facility] Comment: Antibodies to HCV not detected; does not exclude early acute HCV infection. 06/27/2019 8:55 AM EST Historical Provider HISTORICAL/NON ORDERABLE LABS Final Result [facility] [address] * HIV AB/AG (06/27/2019 8:55 AM EST) HIV AG/AB NONREACTIVE [facility] Comment: HIV-1 p24 Ag and/or HIV-1/HIV-2 Ab not detected. ?? A test result that is nonreactive does not exclude the possibility of exposure to or infection with HIV-1 and/or HIV-2. Nonreactive results in this assay for individuals with prior exposure to HIV-1 and/or HIV-2 may be due to antigen and antibody levels that are below the limit of detection of this assay. ?? The [employer] Work Order Clerk HIV Ag/Ab Combo assay result and supplemental assay results should be interpreted in conjunction with the patient's clinical presentation, history and other laboratory results. ??If the results are inconsistent with clinical evidence, additional testing is suggested to confirm the result. 06/27/2019 8:55 AM EST us Historical Provider HISTORICAL/NON ORDERABLE LABS Final Result [facility] [address] from Last 3 Months or Most Recently Relevant to Health Maintenance Insurance [facility] [place] [address] Care Teams Formal Service Waiter Relationship Specialty Start Date End Date Chika Scott MD [address] [place] [address] PCP - General Family Medicine 04/21/20
--- OUTSIDE RECORDS SUMMARY | 2024-10-06 13:05 | XMS_ITS | Encounter Summary ---
Author Organization [employer] Address [address] [facility] 7t [place] [address] Care Team Providers Care Propagation Worker Name Role Phone Chika Scott MD Primary Care Provider [phone] Encounter Details Date Type Department Care Team (Latest Contact Info) Description 10/06/2024 Travel Social History Tobacco Use Types Packs/Day Years Used Date Smoking Tobacco: Never Passive Smoke Exposure: Never Smokeless Tobacco: Never Alcohol Use Standard [...] AM EDT documented as of this encounter Functional Status * Over the [...] of Assessment Author 0 10/06/2024 11:17 AM EDT Pam Browning [place] documented as of this encounter Plan of Treatment Not on file documented as of this encounter Visit Diagnoses Not on filedocumented in this encounter Additional Health Concerns Assessment Noted Time PHQ-9 Depression Total Score: 0 10/07/19 25 11:17 AM EDT documented as of this encounter Care Teams Propagation Worker Relationship Specialty Start Date End Date Chika Scott MD [address] [place] [address] [place] [address] PCP - General Family Medicine 04/21/20 documented as of this encounter
--- OUTSIDE RECORDS SUMMARY | 2024-10-06 13:05 | XMS_ITS | Encounter Summary ---
Author Organization [employer] Address [address] [facility] 7 [place] [address] Care Team Providers Care Solutions Sales Consultant Name Role Phone Chika Scott MD Primary Care Provider [phone] Reason for Visit * Reason Onset Date Comments Nurse Triage 10/01/2024 Encounter Details Date Type Department Care Team ([facility] Contact Info) Description 10/01/2024 Telephone [facility] [address] [place] [address] Chika Scott MD [address] [place] [address] Nurse Triage Social History Tobacco Use Types Packs/Day Years Used Date Smoking Tobacco: Never Passive Smoke Exposure: Never Smokeless Tobacco: Never Alcohol Use Standard Drinks/Week Comments Yes 0 (1 standard drink = 0.6 oz pur e alcohol) ocasionally Depression Answer Date Recorded Patient Health Questionnaire-9 Score 6 03/23/2024 Patient Health Questionnaire-9 Score 6 03/23/2024 Last PHQ-9: Questionnaire Data Not on file 1 05/23/2023 Housing Stability Answer Date Recorded What is your housing situation today? I have aimee holcomb 09/30/[address] you li ve. Do you have problems with any of the following? None of the above 09/30/2023 Food Insecurity Answer Date Recorded Within the past 12 months, y ou worried that your food would run out before you got money to buy more: Never True 09/30/2023 Within the past 12 months,th e food you bought just didn't last and you didn't have enough money to get more: Never True Transportation Answer Date Recorded In the past 12 months, has l ack of transportation kept you from medical appts, meetings, work or from getting things needed for daily living? No 09/30/2023 Utilities Answer Date Recorded In the past 12 months, has t he electric, gas, oil or water company threatened to shut off services in your home? No 09/30/2023 Depression Answer Date Recorded Patient Health Questionnaire-2 Score 1 03/23/2024 Comments Unknown Sex and Gender Information Value Date Recorded Sex Assigned at Female 03/19/2022 10:36 AM EDT Legal Sex Female 10:36 AM EDT Gender Identity Female 03/19/2022 10:36 AM EDT Sexual Orientation Straight 03/19/2022 10 :36 AM EDT documented as of this encounter Miscellaneous Notes * Telephone Encounter - Mila Rea RN - 10/02/2024 9:46 AM EDT Called pt. To set up appt. With PCP for 10/06/24 at 1115am. Pt states she has been feeling a little better but still having some slight dizziness. Pt. Advised to increase water intake and appt. Made for 10/06/24 at 1115am with PCP to get labs drawn for her Thyroid concerns. * Telephone Encounter - Mila Rea RN - 10/01/2024 2:50 PM EDT Called pt. She states that she wants appt. With PCP. Pt. Has been taking her medications on her medication list but, the past few days pt. Feels dizzy, SOB and palpitations. Pt. Is wondering if her thyroid levels are off or if her iron is low. Pt. Wants appt. With PCP. I advised that PCP does not have immediate openings but, pt. Declines appt. Or walk in clinic with other providers. I advised that I may be able to book an appt. For next week and I will keep pt. Call in my in basket to call her back. Pt. Is in agreement and states that if her condition worsens, she will seek ED or walk in. Protocol Used: Heart Rate and Heartbeat Questions (Adult) Protocol-Based Disposition: See in Office or Video Visit within 3 Days Video visit offer not recorded Positive Triage Question: * History of hyperthyroidism or taking thyroid medication * All higher-acuity triage questions were negative * Telephone Encounter - Radha Sin Clinton - 10/01/2024 2:35 PM EDT Symptoms: Dizziness, Breathing Trouble Outcome: Schedule an urgent appointment (within 1 hour) or talk to a nurse or provider soon Reason: Caller denied all higher acuity questions The caller accepted this outcome. documented in this encounter Plan of Treatment Not on file documented as of this encounter Visit Diagnoses Not on filedocumented in this encounter Additional Health Concerns Assessment Noted Time PHQ-9 Depression Total Score: 6 03/23/20 24 3:24 PM EST documented as of this encounter Care Teams Solutions Sales Consultant Relationship Specialty Start Date End Date Chika Scott MD [address] [place] [id number] PCP - General Family Medicine 04/21/20 documented as of this encounter
--- OUTSIDE RECORDS SUMMARY | 2024-10-06 13:05 | XMS_ITS | Encounter Summary ---
Author Organization [employer] Address [address] [facility] 7 [place] [address] Care Team Providers Care History Card Clerk Name Role Phone Chika Scott MD Primary Care Provider [phone] Reason for Visit * Reason Onset Date Comments Chart Prep 10/05/2024 Encounter Details Date Type Department Care Team ([facility] Contact Info) Description 10/05/2024 Telephone [facility] [address] [place] [address] Chika Scott MD [address] [place] [address] Chart Prep Social History Tobacco Use Types Packs/Day Years [...] encounter Miscellaneous Notes * Telephone Encounter - Oxana Harding MA - 10/05/2024 12:21 PM EDT Chart Prep Labs: done Images: not applicable Referrals: not applicable Vaccines due: Covid, Flu, Tdap, Hep B, and Hep A Screenings: colonoscopy and LMP Overdue care gaps: SBIRT, SDOH, NADJA-7, Oral health screening, Disability screen, and Tobacco documented in this encounter Plan of Treatment Not on file documented as of this encounter Visit Diagnoses Not on filedocumented in this encounter Additional Health Concerns Assessment Noted Time PHQ-9 Depression Total Score: 6 03/23/20 24 3:24 PM EST documented as of this encounter Care Teams History Card Clerk Relationship Specialty Start Date End Date Chika Scott MD [address] [place] [address] PCP - General Family Medicine 04/21/20 documented as of this encounter
[2024-10-06 13:10] LABS: MANUAL DIFF FLAG NO
[2024-10-06 13:23] LABS: Basophils Absolute Auto 0.1 X10*3/uL (0.0-0.2); Basophils Percent Auto 0.9 % (0-2); Eosinophils Absolute Auto 0.2 X10*3/uL (0.0-0.4); Eosinophils Percent Auto 2.8 % (0-4); Hematocrit 33.5 % (37.0-47.0); Hemoglobin 9.8 g/dl (12.0-16.0); Imm Gran Abs Auto 0.02 X10*3/uL (0.00-0.03); Imm Gran Pct Auto 0.3 % (0.0-0.4); Lymphocytes Percent Auto 29.3 % (20-40); Mean Corpuscular HGB Conc 29.3 g/dl (31.0-35.0); Mean Corpuscular Hemoglobin 20.1 pg (27.0-33.0); Mean Corpuscular Volume 68.8 fL (80.0-98.0); Mean Platelet Volume 9.5 fL (9.4-12.3); Monocytes Absolute Auto 0.6 X10*3/uL (0.1-1.2); Monocytes Percent Auto 8.1 % (2-11); Neutrophils Percent Auto 58.6 % (45-73); Platelet Count 514 X10*3/uL (160-400); Red Blood Count 4.87 X10*6/uL (4.20-5.50); Red Cell Distribution Width 17.9 % (11.0-16.0); White Blood Count 6.9 X10*3/uL (4.8-10.8)
[2024-10-06 13:37] LABS: B Type Natriuretic Peptide 19 pg/mL (<100)
[2024-10-06 13:59] LABS: Alanine Aminotransferase 14 U/L (0-31); Albumin Level 3.9 g/dL (3.5-5.0); Alkaline Phosphatase 93 U/L (39-117); Anion Gap 9 (12-20); Aspartate Amino Transferase 25 U/L (5-31); Bilirubin Total 0.2 mg/dL (0.0-1.0); Blood Urea Nitrogen 16 mg/dL (9-16); Carbon Dioxide 27 mmol/L (22-29); Chloride 105 mmol/L (96-108); Estimated Glomerular Filt Rate > 60; Glucose Random 95 mg/dL (60-115); Potassium 4.4 mmol/L (3.3-5.1); Sodium 137 mmol/L (135-145); Total Protein 7.5 g/dL (6.5-8.0)
== END 2024-10-06 11:53 | disposition home or self-care (01) ==
LOC: HO.HHCL 11:52
PROVIDERS: Visit Provider General Practice
DX: E06.3 Autoimmune thyroiditis (principal); R06.02 Shortness of breath; D50.9 Iron deficiency anemia, unspecified
CPT/HCPCS: 36415; 80053; 83880; 84443; 85025

== ENCOUNTER 2025-01-04 14:30 | Outpatient (RCR) | payer OTHER, SELFPAY ==
[2024-11-30 14:27] VITALS: BP 125/58; PULSE 94; RESP 16; TEMP 37.4; O2SAT 98
[2024-12-07 14:16] VITALS: BP 108/57; PULSE 91; RESP 16; TEMP 36.8; O2SAT 97
[2024-12-14 14:22] VITALS: BP 109/64; PULSE 90; RESP 16; TEMP 36.6; O2SAT 96
[2024-12-21 14:31] VITALS: BP 105/71; PULSE 90; RESP 16; TEMP 36.7; O2SAT 95
[2024-12-28 14:14] VITALS: BP 108/64; PULSE 88; RESP 16; TEMP 37.1; O2SAT 96
[2025-01-04 14:28] VITALS: BP 116/75; PULSE 84; RESP 16; TEMP 36.9; O2SAT 98
[2025-01-04 14:40] LABS: Hematocrit 38.8 % (37.0-47.0); Hemoglobin 12.2 g/dl (12.0-16.0); Mean Corpuscular HGB Conc 31.4 g/dl (31.0-35.0); Mean Corpuscular Hemoglobin 24.2 pg (27.0-33.0); Mean Corpuscular Volume 76.8 fL (80.0-98.0); NRBC Abs Auto 0.000 X10*3/uL (0.0-0.012); NRBC Pct Auto 0.0 /100WBC (0.0-0.2); Platelet Count 293 X10*3/uL (160-400); Red Blood Count 5.05 X10*6/uL (4.20-5.50); White Blood Count 7.7 X10*3/uL (4.8-10.8)
[2025-01-04 15:20] LABS: Ferritin 151 ng/mL (10-250)
== END 2025-01-04 14:56 | disposition home or self-care (01) ==
LOC: HO.INF 14:30
PROVIDERS: Visit Provider Nurse Practitioner Family
DX: D64.9 Anemia, unspecified (principal)
CPT/HCPCS: 36415; 82728; 85027; 96365; J1756

== ENCOUNTER → 2025-02-01 14:00 | Outpatient (BNV) | payer OTHER, SELFPAY | PROVIDERS: PCP General Practice; Referring Provider General Practice; Visit Provider Nurse Practitioner Family | DX: D50.9 Iron deficiency anemia, unspecified (principal); E53.8 Deficiency of other specified B group vitamins; R74.02 Elevation of levels of lactic acid dehydrogenase [LDH] | CPT/HCPCS: 99213 ==